=== PATIENT | female | born 1990 | race Caucasian/White ===

== ENCOUNTER 2018-06-23 10:00 | Emergency (ER) | payer SELFPAY ==
[2018-06-23 11:03] LABS: Absolute Lymphocytes (CBC) 2.2 K/uL (0.7-4.9); Absolute Monocytes 0.7 K/uL (0.1-1.3); Absolute Neutrophil 5.5 K/uL (1.8-8.0); Basophils % 0.3 % (0-1.3); Eosinophils % 9.5 % (0-4.4); Hematocrit 45.2 % (36.0-45.0); Lymphocytes % 23.5 % (15.3-44.8); MCH 32.1 pg (27.0-35.0); MCV 92.3 fL (80-100); MPV 10.8 fL (7.6-11.3)
[2018-06-23] MEDS ORDERED: NA CHLORIDE 0.9% 1,000 ML ONE ×2 (11:14→12:30)
[2018-06-23 11:17] LABS: Urine Blood NEGATIVE (NEG); Urine Glucose 3+ (NEG); Urine Protein NEGATIVE (NEG)
[2018-06-23 11:20] LABS: ALT/SGPT 26 U/L (12-78); AST/SGOT 12 U/L (15-37); Albumin 3.9 g/dL (3.4-5.0); Alkaline Phosphatase 83 U/L (45-117); BUN Blood Urea Nitrogen 8 mg/dL (7-18); Bicarbonate 24 mmol/L (21-32); Bilirubin Direct 0.1 mg/dL (0-0.2); Bilirubin Total 0.4 mg/dL (0.2-1.0); Lipase 233 U/L (73-393); Potassium 3.7 mmol/L (3.5-5.1); Protein, Total 7.5 g/dL (6.4-8.2); Sodium Level 130 mmol/L (136-145)
[2018-06-23 11:25] LABS: Glucose Level 566 mg/dL (74-106)
[2018-06-23] MEDS ORDERED: INSULIN -REGULAR HUMAN 50 UNIT/0.5 ML ML ONE (12:04)
--- NOTE | 2018-06-23 13:25 | RAD REPORT ---
EXAM DESCRIPTION: CT - Abdomen Pelvis W Contrast - 06/23/2018 1:09 pm CLINICAL HISTORY: Left lower quadrant pain, vomiting, hyperglycemia, diabetes history, prior C-secti on COMPARISON: CT imaging May 2016 and February 2013 TECHNIQUE: Biphasic, helical CT imaging of the abdomen and pelvis was performed following 100 ml non -ionic IV contrast. No oral contrast administered. All CT scans are performed using dose optimization technique as appropriate and may include automated exposure control or mA/KV adjustment according to patient size. FINDINGS: No suspicious findings in the lung bases. The liver, spleen, and pancreas show no suspicious findings. Gallbladder and biliary tree are also wi thout suspicious finding. Gallstones can be occult on CT imaging. No evidence for an active gallbladd er process. Symmetric renal function is seen with no hydronephrosis or suspicious renal mass. No pyelonephritis o r acute renal parenchymal process. Well filled urinary bladder shows no wall thickening, edema or acu te finding. Uterine size is normal. Fallopian tube occlusive devices are in place. There is heterogen eity of the myometrium enhancement which can be seen commonly and is not an indicator specifically of an active uterine myometrial process. Nabothian cysts are present similar to prior imaging. Left ovary is localized to the anterior upper left pelvis. No acute findings seen. In the right adnex a there is cystic structure present that dates back to at least 2012. This is possibly persistent ova all or paraovarian cyst. A chronic or right-side hydrosalpinx would be possible. By appearance and b y history pyosalpinx is not suspected. No dilated bowel loops or bowel wall thickening. No appendicitis findings. No free air, free fluid or inflammatory stranding. Moderate stool volume is present in the colon without an active colon proces s seen. No hernia, mass or bulky lymphadenopathy. No adrenal abnormality. No suspicious bony findings. IMPRESSION: No surgically emergent finding identifiable. Moderate stool volume is present throughout the colon with no acute colon process or abnormality of the appendix. A few minimally prominent fluid-filled small bowel loops are present. Nonspecific enteritis would be possible. Heterogeneity of the uterine wall enhancement pattern is nonspecific and most likely a normal variant . Fallopian tube occlusive devices are in place with no suspicious left ovarian or left adnexal findi ng. Cystic structure in the right adnexa is probably ovarian/paraovarian cysts that date back to 2012. Ch ronic right-sided hydrosalpinx is a possibility. By history and imaging, pyosalpinx is not suspected.
--- NOTE | 2018-06-23 14:56 | ER ---
Nurse's Notes [facility] Name: Shannan Mccoy Age: 27 yrs Sex: Female : 1990 Arrival Date: 06/23/2018 Time: 10:03 Bed 23 Private MD: KIMBERLY HARRIS Diagnosis: Hyperglycemia, unspecified Presentation: 06/23 10:28 Presenting complaint: Patient states: [id number] this morning, "I feel really weird." LLQ sv pain, c/o vomiting. Novolin 70/30 45 units taken at 0640. Transition of care: patient was not received from another setting of care. Onset of symptoms was June 23, 2018. Care prior to arrival: None. 10:28 Method Of Arrival: Ambulatory sv 10:28 Acuity: TAQUERIA 3 sv 15:16 Risk Assessment: Do you want to hurt yourself or someone else? Patient reports no mg2 desire to harm self or others. Initial Sepsis Screen: Does the patient meet any 2 criteria? No. Patient's initial sepsis screen is negative. Does the patient have a suspected source of infection? No. Patient's initial sepsis screen is negative. Triage Assessment: 15:16 General: Behavior is calm, cooperative. 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 - Social history:: Smoking status: unknown. - Ebola Screening: : No symptoms or risks identified at this time. Screenin:14 Abuse screen: Denies threats or abuse. Denies injuries from another. Nutritional mg2 screening: No deficits noted. Tuberculosis screening: No symptoms or risk factors identified. Fall Risk IV access (20 points). Assessment: 11:15 General: Appears in no apparent distress. Pain: Complains of pain in left lower iw quadrant. Neuro: Level of Consciousness is awake, alert, obeys commands, Oriented to person, place, time, situation, Moves all extremities. Full function. Cardiovascular: Patient's skin is warm and dry. Respiratory: Respiratory effort is even, unlabored, Respiratory pattern is regular, symmetrical. GI: Abdomen is flat, non-distended, Bowel sounds present X 4 quads. Abd is soft X 4 quads Abdomen is tender to palpation in left upper quadrant and left lower quadrant. Derm: Skin is intact, is healthy with good turgor. Musculoskeletal: Range of motion: intact in all extremities. 12:18 Reassessment: Patient appears in no apparent distress at this time. Patient and/or iw family updated on plan of care and expected duration. Pain level reassessed. Patient is alert, oriented x 3, equal unlabored respirations, skin warm/dry/pink. 14:05 Reassessment: Patient appears in no apparent distress at this time. Patient and/or rv family updated on plan of care and expected duration. Pain level reassessed. Patient is alert, oriented x 3, equal unlabored respirations, skin warm/dry/pink. Vital Signs: 10:31 BP 134 / 79; Pulse 79; Resp 18; Temp 97; Pulse Ox 97% ; Weight 49.9 kg; Height 4 ft. 9 sv in. (144.78 cm); Pain 6/10; 12:18 BP 97 / 68; Pulse 61; Resp 16; Pulse Ox 100% on R/A; iw 13:40 BP 112 / 82; Pulse 74; Pulse Ox 100% on R/A; Pain 4/10; rv 15:15 BP 118 / 86; Pulse 85; Resp 17; Pulse Ox 100% on R/A; mg2 10:31 Body Mass Index 23.80 (49.90 kg, 144.78 cm) sv ED Course: 10:03 Patient arrived in ED. mr 10:04 [facility], [facility] is Private Physician. mr 10:30 Triage completed. sv 10:32 Arm band placed on. sv 10:36 Shelby Segura FNP-C is PHCP. kb 10:36 Sher Osullivan MD is Attending Physician. kb 10:36 Geovanna Artis, ANNY is Primary Nurse. iw 12:10 Inserted saline lock: 22 gauge in left antecubital area, using aseptic technique. iw 13:02 Note: iv was not working, started a 24g diffusics to rt wrist. Patient moved to CT via wheelchair. 13:04 CT completed. Patient tolerated procedure well. Patient moved back from CT. 13:09 CT Abd/Pelvis - W/Contrast In Process Unspecified. EDMS 13:21 No provider procedures requiring assistance completed. iw 15:14 IV discontinued, intact, bleeding controlled, No redness/swelling at site. Pressure mg2 dressing applied. 15:17 Patient has correct armband on for positive identification. mg2 Administered Medications: 11:11 Drug: NS 0.9% 1000 ml Route: IV; Rate: 1000 ml; Site: right antecubital; iw 14:02 Follow up: IV Status: Completed infusion rv 12:20 Drug: Insulin Regular Human 10 units {Co-Signature: rv (Memo Draper RN).} Route: iw IVP; Site: left antecubital; 14:15 Follow up: Response: No adverse reaction; Blood sugar is lowered rv 13:45 Drug: NS 0.9% 1000 ml Route: IV; Rate: 1000 ml; Site: right wrist; rv Point of Care Testing: Blood Glucose: 10:35 Blood Glucose: 468 mg/dL; sv 12:37 Blood Glucose: 348 mg/dL; iw 13:40 Blood Glucose: 190 mg/dL; rv Ranges: Outcome: 14:56 Discharge ordered by . kb 15:15 Discharged to home ambulatory. mg2 15:15 Condition: stable 15:15 Discharge instructions given to patient, Instructed on discharge instructions, follow up and referral plans. Demonstrated understanding of instructions, follow-up care. 15:18 Patient left the ED. mg2 Signatures: Dispatcher [employer] EDMS Shelby Segura, LIQUIFIED NATURAL GAS TECHNICIAN-C LIQUIFIED NATURAL GAS TECHNICIAN-Arabella Islas RN Kayli Chuodhary mr VargasChristianne Irene, RN RN iw Ancelmo Encinas RN RN mg2 Vicente, Ronaldo, RN RN rv Memo Draper RN rv Corrections: (The following items were deleted from the chart) 12:20 12:18 BP 129 / 76; Pulse 52bpm; Resp 16bpm; Pulse Ox 100% RA; Pain 6/10; iw iw
--- NOTE | 2018-06-23 14:56 | EDPHYS ---
Physician Documentation [facility] Name: Shannan Mccoy Age: 27 yrs Sex: Female : 1990 Arrival Date: 06/23/2018 Time: 10:03 Bed 23 Private MD: KIMBERLY [facility] ED Physician Sher Osullivan HPI: 06/23 12:28 This 27 yrs old Female presents to ER via Ambulatory with complaints of kb Abdominal Pain, High Blood Sugar. 12:28 The patient or guardian reports hyperglycemia. Onset: The symptoms/episode kb began/occurred this morning. Associated signs and symptoms: Pertinent positives: nausea, vomiting. Current symptoms: In the emergency department the patient's symptoms are unchanged from the initial presentation. The patient has not experienced similar symptoms in the past. 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 - Social history:: Smoking status: unknown. - Ebola Screening: : No symptoms or risks identified at this time. ROS: 12:27 Constitutional: Negative for fever, chills, and weight loss, Cardiovascular: Negative kb for chest pain, palpitations, and edema, Respiratory: Negative for shortness of breath, cough, wheezing, and pleuritic chest pain, Back: Negative for injury and pain, : Negative for injury, bleeding, discharge, and swelling, MS/Extremity: Negative for injury and deformity, Skin: Negative for injury, rash, and discoloration, Neuro: Negative for headache, weakness, numbness, tingling, and seizure. 12:27 Abdomen/GI: Positive for abdominal pain, nausea and vomiting. Exam: 12:27 Constitutional: This is a well developed, well nourished patient who is awake, alert, kb and in no acute distress. Head/Face: Normocephalic, atraumatic. Chest/axilla: Normal chest wall appearance and motion. Nontender with no deformity. No lesions are appreciated. Cardiovascular: Regular rate and rhythm with a normal S1 and S2. No gallops, murmurs, or rubs. Normal PMI, no JVD. No pulse deficits. Respiratory: Lungs have equal breath sounds bilaterally, clear to auscultation and percussion. No rales, rhonchi or wheezes noted. No increased work of breathing, no retractions or nasal flaring. Skin: Warm, dry with normal turgor. Normal color with no rashes, no lesions, and no evidence of cellulitis. MS/ Extremity: Pulses equal, no cyanosis. Neurovascular intact. Full, normal range of motion. Neuro: Awake and alert, GCS 15, oriented to person, place, time, and situation. Cranial nerves II-XII grossly intact. Motor strength 5/5 in all extremities. Sensory grossly intact. Cerebellar exam normal. Normal gait. 12:27 Abdomen/GI: Inspection: abdomen appears normal, Bowel sounds: normal, in all quadrants, Palpation: soft, in all quadrants, moderate abdominal tenderness, in the left lower quadrant. Vital Signs: 10:31 BP 134 / 79; Pulse 79; Resp 18; Temp 97; Pulse Ox 97% ; Weight 49.9 kg; Height 4 ft. 9 sv in. (144.78 cm); Pain 6/10; 12:18 BP 97 / 68; Pulse 61; Resp 16; Pulse Ox 100% on R/A; iw 13:40 BP 112 / 82; Pulse 74; Pulse Ox 100% on R/A; Pain 4/10; rv 15:15 BP 118 / 86; Pulse 85; Resp 17; Pulse Ox 100% on R/A; mg2 10:31 Body Mass Index 23.80 (49.90 kg, 144.78 cm) sv MDM: 10:37 Patient medically screened. kb 12:27 Data reviewed: vital signs, nurses notes. Data interpreted: Pulse oximetry: on room air kb is 100 %. Interpretation: normal. 14:11 Counseling: I had a detailed discussion with the patient and/or guardian regarding: the kb historical points, exam findings, and any diagnostic results supporting the discharge/admit diagnosis, lab results, radiology results, the need for outpatient follow up, a family practitioner, to return to the emergency department if symptoms worsen or persist or if there are any questions or concerns that arise at home. 06/23 10:39 Order name: Glucose, Ancillary Testing; Complete Time: 10:43 EDMS 06/23 10:42 Order name: Basic Metabolic Panel; Complete Time: 11:31 kb 06/23 10:42 Order name: CBC with Diff; Complete Time: 11:18 kb 06/23 10:42 Order name: Hepatic Function; Complete Time: 11:31 kb 06/23 10:42 Order name: Lipase; Complete Time: 11:31 kb 06/23 10:42 Order name: Acetone, Serum; Complete Time: 11:31 kb 06/23 10:42 Order name: IV Saline Lock; Complete Time: 10:57 kb 06/23 10:42 Order name: Labs collected and sent; Complete Time: 10:57 kb 06/23 11:11 Order name: Urine Dipstick--Ancillary (enter results); Complete Time: 11:18 eb 06/23 11:11 Order name: Urine --Ancillary (enter results); Complete Time: 11:18 eb 06/23 12:39 Order name: CT Abd/Pelvis - W/Contrast; Complete Time: 13:29 kb 06/23 10:42 Order name: Urine Test (obtain specimen); Complete Time: 11: kb 06/23 10:42 Order name: Urine Dipstick-Ancillary (obtain specimen); Complete Time: 11: kb 06/23 14:02 Order name: Blood Glucose Level; Complete Time: 14:15 kb Administered Medications: 11:11 Drug: NS 0.9% 1000 ml Route: IV; Rate: 1000 ml; Site: right antecubital; iw 14:02 Follow up: IV Status: Completed infusion rv 12:20 Drug: Insulin Regular Human 10 units {Co-Signature: rv (Memo Draper RN).} Route: iw IVP; Site: left antecubital; 14:15 Follow up: Response: No adverse reaction; Blood sugar is lowered rv 13:45 Drug: NS 0.9% 1000 ml Route: IV; Rate: 1000 ml; Site: right wrist; rv Point of Care Testing: Blood Glucose: 10:35 Blood Glucose: 468 mg/dL; sv 12:37 Blood Glucose: 348 mg/dL; iw 13:40 Blood Glucose: 190 mg/dL; rv Ranges: Critical Glucose Levels:Adult <50 mg/dl or >400 mg/dl <40 mg/dl or >180 mg/dl Disposition: 18:50 Co-signature as Attending Physician, Sher Osullivan MD. rn Disposition: 06/23/18 14:56 Discharged to Home. Impression: Hyperglycemia, unspecified. - Condition is Stable. - Discharge Instructions: Hyperglycemia, [id number]. - Medication Reconciliation Form, Thank You Letter, Antibiotic Education, Prescription Opioid Use form. - Follow up: Emergency Department; When: As needed; Reason: Worsening of condition. Follow up: Private Physician; When: 2 - 3 days; Reason: Recheck today's complaints, Continuance of care, Re-evaluation by your physician. Signatures: Dispatcher [employer] EDMS Shelby Segura, WELL SERVICE PUMP EQUIPMENT OPERATOR-C WELL SERVICE PUMP EQUIPMENT OPERATOR-CkArabella Keene, RN RN sv Geovanna Artis, RN RN iw Sher Osullivan MD MD rn Gardose, Michele RN RN mg2 Memo Draper RN RN rv Memo Draper RN rv Corrections: (The following items were deleted from the chart) 15:18 14:56 06/23/2018 14:56 Discharged to Home. Impression: Hyperglycemia, unspecified. mg2 Condition is Stable. Discharge Instructions: Hyperglycemia, [id number]. Forms are Medication Reconciliation Form, Thank You Letter, Antibiotic Education, Prescription Opioid Use. Follow up: Emergency Department; When: As needed; Reason: Worsening of condition. Follow up: Private Physician; When: 2 - 3 days; Reason: Recheck today's complaints, Continuance of care, Re-evaluation by your physician. kb
[2018-06-23 15:38] VITALS: TEMP 97
[2018-06-23 15:39] VITALS: O2SAT 100
[2018-06-23 15:41] VITALS: BP 118/86
== END 2018-06-23 15:18 | disposition home or self-care (01) ==
LOC: ER 10:00
DX: E11.65 Type 2 diabetes mellitus with hyperglycemia (principal); Z79.4 Long term (current) use of insulin
CPT/HCPCS: 36415; 74177; 80048; 80076; 81003; 81025; 82010; 82962; 83690; 85025; 96361; 96374; 99284; J7030; Q9967

== ENCOUNTER 2018-07-13 22:59 | Emergency (ER) | payer SELFPAY ==
[2018-07-13 23:14] LABS: Absolute Lymphocytes (CBC) 5.6 K/uL (0.7-4.9); Absolute Monocytes 0.7 K/uL (0.1-1.3); Absolute Neutrophil 4.5 K/uL (1.8-8.0); Basophils % 0.4 % (0-1.3); Eosinophils % 4.8 % (0-4.4); MCH 31.4 pg (27.0-35.0); MCV 93.4 fL (80-100); MPV 10.5 fL (7.6-11.3); Monocytes % 6.3 % (3.3-12.3); RBC Red Blood Cell Count 4.71 M/uL (3.86-4.86)
[2018-07-13 23:18] LABS: Protime INR 0.82
[2018-07-13] MEDS ORDERED: NA CHLORIDE 0.9% 1,000 ML ONE ×2 (23:18→23:22)
[2018-07-13] MEDS ORDERED: ONDANSETRON 4 MG/2 ML VIAL ONE ×2 (23:18→23:21)
[2018-07-13 23:32] LABS: ALT/SGPT 27 U/L (12-78); AST/SGOT 18 U/L (15-37); Albumin 3.7 g/dL (3.4-5.0); Alkaline Phosphatase 74 U/L (45-117); BUN Blood Urea Nitrogen 12 mg/dL (7-18); Bicarbonate 20 mmol/L (21-32); Bilirubin Direct 0.1 mg/dL (0-0.2); Bilirubin Total 0.1 mg/dL (0.2-1.0); Potassium 3.2 mmol/L (3.5-5.1); Protein, Total 7.1 g/dL (6.4-8.2); Sodium Level 136 mmol/L (136-145)
[2018-07-13 23:35] LABS: Glucose Level 628 mg/dL (74-106)
[2018-07-13] MEDS ORDERED: INSULIN -REGULAR HUMAN 50 UNIT/0.5 ML ML ONE (23:51)
[2018-07-14 00:51] LABS: Barbiturates NEGATIVE (NEGATIVE); Benzodiazepines NEGATIVE (NEGATIVE); Cocaine NEGATIVE (NEGATIVE); METHAMPHETAM NEGATIVE (NEGATIVE); Methadone NEGATIVE (NEGATIVE); Opiates NEGATIVE (NEGATIVE); Phencyclidine NEGATIVE (NEGATIVE); THC Cannibis NEGATIVE (NEGATIVE)
--- NOTE | 2018-07-14 01:38 | EDPHYS ---
Physician Documentation [facility] Name: Shannan Mccoy Age: 27 yrs Sex: Female : 1990 Arrival Date: 07/13/2018 Time: 22:59 Bed 2 Private MD: ED Physician Anuj Coronado HPI: 07/14 01:32 This 27 yrs old Female presents to ER via Wheelchair with complaints of tw4 Unresponsive. 01:32 The patient presents with decreased mental status, decreased responsiveness. Onset: The tw4 symptoms/episode began/occurred today. Possible causes: alcohol, has had a recent alcohol binge. Associated signs and symptoms: Pertinent positives: nausea, vomiting. Current symptoms: In the emergency department the patient's symptoms are unchanged from the initial presentation. Patient's baseline: Neuro: alert and fully oriented, Motor: no deficits, Ambulation: walks without assistance, Speech: normal. The patient has not experienced similar symptoms in the past. 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 - Social history:: Smoking status: Patient/guardian denies using tobacco, Patient uses alcohol, patient/guardian reports recent binge of alcohol consumption. Patient/guardian denies using street drugs, Patient uses alcohol, but reports only rare drinking. patient/guardian reports recent binge of alcohol consumption. - Ebola Screening: : No symptoms or risks identified at this time. ROS: 07/14 01:32 Constitutional: Negative for fever, chills, and weight loss, Eyes: Negative for injury, tw4 pain, redness, and discharge, Cardiovascular: Negative for chest pain, palpitations, and edema, Respiratory: Negative for shortness of breath, cough, wheezing, and pleuritic chest pain, Abdomen/GI: Negative for abdominal pain, nausea, vomiting, diarrhea, and constipation, Back: Negative for injury and pain, MS/Extremity: Negative for injury and deformity, Skin: Negative for injury, rash, and discoloration. Neuro: Positive for altered mental status. Exam: 01:33 Head/Face: Normocephalic, atraumatic. tw4 01:33 Chest/axilla: Normal chest wall appearance and motion. Nontender with no deformity. No lesions are appreciated. Cardiovascular: Regular rate and rhythm with a normal S1 and S2. No gallops, murmurs, or rubs. Normal PMI, no JVD. No pulse deficits. Respiratory: Lungs have equal breath sounds bilaterally, clear to auscultation and percussion. No rales, rhonchi or wheezes noted. No increased work of breathing, no retractions or nasal flaring. Abdomen/GI: Soft, non-tender, with normal bowel sounds. No distension or tympany. No guarding or rebound. No evidence of tenderness throughout. Back: No spinal tenderness. No costovertebral tenderness. Full range of motion. MS/ Extremity: Pulses equal, no cyanosis. Neurovascular intact. Full, normal range of motion. 01:33 Constitutional: The patient appears lethargic, listless. 01:33 Neuro: Orientation: to person, place \T\ time. Mentation: slow to respond, confused, Cranial nerves: CN II- XII are normal as tested, Cerebellar function: unable to test, the patient is clinically intoxicated, Motor: moves all fours, Sensation: unable to test, the patient is clinically intoxicated, Gait: unable to assess, the patient is intoxicated. Vital Signs: 07/13 23:16 BP 126 / 94; Pulse 97; Resp 22 S; Pulse Ox 100% on R/A; Weight 47.63 kg (R); Height 4 bb ft. 9 in. (144.78 cm) (R); 23:18 BP 165 / 142; Pulse 102; Resp 21; Pulse Ox 98% on R/A; rr5 07/14 00:00 BP 143 / 81; Pulse 110; Resp 20; Pulse Ox 98% on R/A; rr5 00:30 BP 162 / 110; Pulse 111; Resp 20; Pulse Ox 98% on R/A; rr5 02:06 BP 103 / 69; Pulse 99; Resp 17; Pulse Ox 99% on R/A; rr5 07/13 23:16 Body Mass Index 22.72 (47.63 kg, 144.78 cm) bb [place] Coma Score: 07/13 23:20 Eye Response: to voice(3). Verbal Response: inappropriate words(3). Motor Response: rr5 obeys commands(6). Total: 12. 07/14 00:00 Eye Response: spontaneous(4). Verbal Response: confused(4). Motor Response: obeys rr5 commands(6). Total: 14. 00:30 Eye Response: spontaneous(4). Verbal Response: confused(4). Motor Response: obeys rr5 commands(6). Total: 14. 01:10 Eye Response: spontaneous(4). Verbal Response: oriented(5). Motor Response: obeys rr5 commands(6). Total: 15. 02:06 Eye Response: spontaneous(4). Verbal Response: oriented(5). Motor Response: obeys rr5 commands(6). Total: 15. MDM: 07/13 23:30 Patient medically screened. tw4 07/14 01:33 Differential Diagnosis: CVA, electrolyte abnormality, alcohol intoxication, overdose, tw4 volume depletion. Data reviewed: vital signs, nurses notes. Data interpreted: quality assurance monitor final: rhythm is normal sinus rhythm, Pulse oximetry: Interpretation: normal. Counseling: I had a detailed discussion with the patient and/or guardian regarding: the historical points, exam findings, and any diagnostic results supporting the discharge/admit diagnosis, lab results. Special discussion: I discussed with the patient/guardian in detail that at this point there is no indication for admission to the hospital. It is understood, however, that if the symptoms persist or worsen the patient needs to return immediately for re-evaluation. 07/13 23:04 Order name: Acetaminophen; Complete Time: 00:10 tw4 07/13 23:04 Order name: Basic Metabolic Panel; Complete Time: 00:10 tw4 07/14 00:10 Interpretation: Normal except: K 3.2; CO2 20; GLUC 628; GFR 75. tw4 07/13 23:04 Order name: CBC with Diff; Complete Time: 00:10 tw4 07/14 00:11 Interpretation: Normal except: WBC 11.4; RDW 12.6; KIKE% 39.5; LYM% 49.0; EOSINOPHIL % tw4 4.8; LYMA 5.6. 07/13 23:04 Order name: ETOH Level; Complete Time: 00:10 tw4 07/14 00:11 Interpretation: Normal except: ETOH 218. [facility] 07/13 23:04 Order name: Hepatic Function; Complete Time: 00:10 [facility] 07/14 00:11 Interpretation: Normal except: BILIT 0.1. [facility] 07/13 23:04 Order name: PT-INR; Complete Time: 00:10 [facility] 07/14 00:12 Interpretation: Normal except: PT 9.7. [facility] 07/13 23:04 Order name: Ptt, Activated; Complete Time: 00:10 [facility] 07/14 00:12 Interpretation: Within normal limits: PTT 27.1. [facility] 07/13 23:04 Order name: Salicylate; Complete Time: 00:10 [facility] 07/14 00:11 Interpretation: Normal except: DIONISIO < 1.7. [facility] 07/13 23:04 Order name: Urine Drug Screen [facility] 07/13 23:08 Order name: Ketone, Serum [facility] 07/13 23:09 Order name: Acetone Level; Complete Time: 00:10 EDUT 07/14 00:12 Interpretation: ACET NEG. [facility] 07/14 00:32 Order name: Urine Dipstick--Ancillary (enter results) [facility] 07/14 00:32 Order name: Urine --Ancillary (enter results) [facility] 07/13 23:04 Order name: Urine Test (obtain specimen); Complete Time: 00:54 [facility] 07/13 23:04 Order name: EKG; Complete Time: 23:06 [facility] 07/13 23:04 Order name: EKG - Nurse/Tech; Complete Time: 23:32 [facility] 07/13 23:04 Order name: IV Saline Lock; Complete Time: 23:23 [facility] 07/13 23:04 Order name: Labs collected and sent; Complete Time: 23:23 [facility] 07/13 23:04 Order name: Urine Dipstick-Ancillary (obtain specimen); Complete Time: 00:31 [facility] Administered Medications: 07/13 23:22 Drug: NS 0.9% 1000 ml Route: IV; Rate: 1 bolus; Site: right forearm; ea 07/14 00:30 Follow up: IV Status: Completed infusion; IV Intake: 1000ml rr5 07/13 23:22 Drug: Zofran 4 mg Route: IVP; Site: right forearm; ea 07/14 02:00 Follow up: Response: No adverse reaction; Marked relief of symptoms rr5 07/13 23:45 Drug: Insulin Regular Human 10 units {Co-Signature: sharron (Manoj Shukla RN).} Route: IVP; rr5 Site: right forearm; 07/14 02:11 Follow up: Response: No adverse reaction; Blood sugar is lowered rr5 00:15 Drug: NS 0.9% 1000 ml Route: IV; Rate: 1 bolus; Site: right forearm; rr5 01:50 Follow up: Urine output 400 ml; Response: No adverse reaction; IV Status: Completed rr5 infusion; IV Intake: 1000ml 02:11 Not Given (Physician Discretion): Insulin Regular Human 5 units IVP once rr5 Point of Care Testing: Blood Glucose: 07/13 23:18 Blood Glucose: 500 mg/dL; rr5 07/14 00:35 Blood Glucose: 343 mg/dL; rr5 01:00 Blood Glucose: 255 mg/dL; rr5 01:50 Blood Glucose: 179 mg/dL; rr5 07/13 23:18 more than 500 mg/dl dr. coronado informed rr5 07/14 00:35 dr. coronado informed rr5 01:00 DR coronado informed rr5 Ranges: Critical Glucose Levels:Adult <50 mg/dl or >400 mg/dl <40 mg/dl or >180 mg/dl Disposition: 07/14/18 01:37 Discharged to Home. Impression: Alcohol abuse with intoxication, Hyperglycemia, unspecified. - Condition is Stable. - Discharge Instructions: Alcohol Intoxication, Hyperglycemia, Alcohol Abuse and Nutrition, Blood Glucose Monitoring, Adult. - Prescriptions for Zofran 4 mg Oral Tablet - take 1 tablet by ORAL route every 12 hours As needed; 6 tablet. - Medication Reconciliation Form, Thank You Letter, Antibiotic Education, Prescription Opioid Use form. - Follow up: Private Physician; When: Upon discharge from the Emergency Department; Reason: Further diagnostic work-up, Recheck today's complaints, Continuance of care. - Problem is new. - Symptoms have improved. Signatures: Dispatcher [employer] Ary Dietrich RN RN Elaine Centeno RN RN ea Wadley, Terrence, MD MD tw4 Manuel Arauz RN RN rr5 Manoj mcdermott Corrections: (The following items were deleted from the chart) 02:10 01:37 07/14/2018 01:37 Discharged to Home. Impression: Alcohol abuse with intoxication; rr5 Hyperglycemia, unspecified. Condition is Stable. Forms are Medication Reconciliation Form, Thank You Letter, Antibiotic Education, Prescription Opioid Use. Follow up: Private Physician; When: Upon discharge from the Emergency Department; Reason: Further diagnostic work-up, Recheck today's complaints, Continuance of care. Problem is new. Symptoms have improved. tw4
--- NOTE | 2018-07-14 01:38 | ER ---
Nurse's Notes [facility] Name: Shannan Mccoy Age: 27 yrs Sex: Female : 1990 Arrival Date: 07/13/2018 Time: 22:59 Bed 2 Private MD: Diagnosis: Alcohol abuse with intoxication;Hyperglycemia, unspecified Presentation: 07/13 23:11 Presenting complaint: states: spouse drank approx 1 cup of alcohol mixed in two bb drinks with orange juice pt started vomiting and he checked her blood sugar which recorded high he then gave her 45 units of Novolin 70/30. Transition of care: patient was not received from another setting of care. Onset of symptoms was July 13, 2018. Risk Assessment: Do you want to hurt yourself or someone else? Patient reports no desire to harm self or others. Initial Sepsis Screen: Does the patient meet any 2 criteria? No. Patient's initial sepsis screen is negative. Does the patient have a suspected source of infection? No. Patient's initial sepsis screen is negative. Care prior to arrival: None. 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 - Social history:: Smoking status: Patient/guardian denies using tobacco, Patient uses alcohol, patient/guardian reports recent binge of alcohol consumption. Patient/guardian denies using street drugs, Patient uses alcohol, but reports only rare drinking. patient/guardian reports recent binge of alcohol consumption. - Ebola Screening: : No symptoms or risks identified at this time. Screenin:20 Abuse screen: Denies threats or abuse. Denies injuries from another. Nutritional rr5 screening: No deficits noted. Tuberculosis screening: No symptoms or risk factors identified. Fall Risk IV access (20 points). Ambulatory Aid- None/Bed Rest/Nurse Assist (0 pts). Gait- Impaired (20 pts.). Mental Status- Overestimates/Forgets Limitations (15 pts.). Total [place]ata Fall Scale indicates High Risk Score (45 or more points). Fall prevention measures have been instituted. Side Rails Up X 2 Frequent Obs/Assessments Occuring Family Present and informed to notify staff if the need to leave the bedside As available patient and family educated on Fall Prevention Program and Strategies. Assessment: 23:28 General: Appears uncomfortable, ill, Behavior is drowsy. Pain: Denies pain. Complains rr5 of pain in head Quality of pain is described as aching, Pain began suddenly, 1 hour ago. Neuro: Level of Consciousness is lethargic, drowsy. Cardiovascular: Capillary refill < 3 seconds Patient's skin is warm and dry. Cardiovascular: Respiratory: Airway is patent. Respiratory: Respiratory effort is labored, Respiratory pattern is tachypnea. GI: No signs and/or symptoms were reported involving the gastrointestinal system. Abdomen is round. : No signs and/or symptoms were reported regarding the genitourinary system. EENT: No signs and/or symptoms were reported regarding the EENT system. Derm: No signs and/or symptoms reported regarding the dermatologic system. Musculoskeletal: No signs and/or symptoms reported regarding the musculoskeletal system. 23:38 Reassessment: informed for the critical laboratory result Blood glucose of rr5 628mg/dl with order and carried out by laboratory staff terra carroll. 07/14 00:30 Reassessment: patient is drowsy disoriented GCS 14/15 more responsive. negative for rr5 vomiting. 01:00 Reassessment: Patient appears in no apparent distress at this time. reassessment done rr5 GCS15/15, repeat CBG 255mg/dl dr. coronado at bedside Patient states feeling better. Patient states symptoms have improved. 01:59 Reassessment: patient feeling better as verbalized. explained to thinner sprayer the rr5 discharge instruction, followup, and to repeat the glucose check every 3-4 hours. Patient states feeling better. Patient states symptoms have improved. Vital Signs: 07/13 23:16 BP 126 / 94; Pulse 97; Resp 22 S; Pulse Ox 100% on R/A; Weight 47.63 kg (R); Height 4 bb ft. 9 in. (144.78 cm) (R); 23:18 BP 165 / 142; Pulse 102; Resp 21; Pulse Ox 98% on R/A; rr5 11/22 00:00 BP 143 / 81; Pulse 110; Resp 20; Pulse Ox 98% on R/A; rr5 00:30 BP 162 / 110; Pulse 111; Resp 20; Pulse Ox 98% on R/A; rr5 02:06 BP 103 / 69; Pulse 99; Resp 17; Pulse Ox 99% on R/A; rr5 07/13 23:16 Body Mass Index 22.72 (47.63 kg, 144.78 cm) bb [place] Coma Score: 07/13 23:20 Eye Response: to voice(3). Verbal Response: inappropriate words(3). Motor Response: rr5 obeys commands(6). Total: 12. 07/14 00:00 Eye Response: spontaneous(4). Verbal Response: confused(4). Motor Response: obeys rr5 commands(6). Total: 14. 00:30 Eye Response: spontaneous(4). Verbal Response: confused(4). Motor Response: obeys rr5 commands(6). Total: 14. 01:10 Eye Response: spontaneous(4). Verbal Response: oriented(5). Motor Response: obeys rr5 commands(6). Total: 15. 02:06 Eye Response: spontaneous(4). Verbal Response: oriented(5). Motor Response: obeys rr5 commands(6). Total: 15. ED Course: 07/13 22:59 Patient arrived in ED. es 23:02 Anuj Coronado MD is Attending Physician. tw4 23:15 Triage completed. bb 23:16 Arm band placed on Patient placed in an exam room, on a stretcher, on manager monitoring, bb on pulse oximetry. Family accompanied patient. 23:20 Patient has correct armband on for positive identification. Placed in gown. Bed in low rr5 position. Call light in reach. Side rails up X2. Adult w/ patient. 23:20 Inserted saline lock: 20 gauge in left antecubital area, using aseptic technique. Blood rr5 collected. 23:22 Manuel Arauz, ANNY is Primary Nurse. rr5 23:30 Inserted saline lock: 22 gauge in right forearm, using aseptic technique. Blood rr5 collected. 07/14 02:07 No provider procedures requiring assistance completed. IV discontinued, intact, rr5 bleeding controlled, No redness/swelling at site. Pressure dressing applied, 2 iv cannula removed. Administered Medications: 07/13 23:22 Drug: NS 0.9% 1000 ml Route: IV; Rate: 1 bolus; Site: right forearm; ea 07/14 00:30 Follow up: IV Status: Completed infusion; IV Intake: 1000ml rr5 07/13 23:22 Drug: Zofran 4 mg Route: IVP; Site: right forearm; ea 07/14 02:00 Follow up: Response: No adverse reaction; Marked relief of symptoms rr5 07/13 23:45 Drug: Insulin Regular Human 10 units {Co-Signature: sharron (Manoj Shukla RN).} Route: IVP; rr5 Site: right forearm; 07/14 02:11 Follow up: Response: No adverse reaction; Blood sugar is lowered rr5 00:15 Drug: NS 0.9% 1000 ml Route: IV; Rate: 1 bolus; Site: right forearm; rr5 01:50 Follow up: Urine output 400 ml; Response: No adverse reaction; IV Status: Completed rr5 infusion; IV Intake: 1000ml 02:11 Not Given (Physician Discretion): Insulin Regular Human 5 units IVP once rr5 Point of Care Testing: Blood Glucose: 07/13 23:18 Blood Glucose: 500 mg/dL; rr5 07/14 00:35 Blood Glucose: 343 mg/dL; rr5 01:00 Blood Glucose: 255 mg/dL; rr5 01:50 Blood Glucose: 179 mg/dL; rr5 07/13 23:18 more than 500 mg/dl dr. coronado informed rr5 07/14 00:35 dr. coronado informed rr5 01:00 DR coronado informed rr5 Ranges: Intake: 00:30 IV: 1000ml; Total: 1000ml. rr5 01:50 IV: 1000ml; Total: 2000ml. rr5 Output: 01:50 Urine: 400ml; Total: 400ml. rr5 Outcome: 01:37 Discharge ordered by . tw4 02:08 Discharged to home ambulatory, with family. rr5 02:08 Condition: stable 02:08 Discharge instructions given to patient, family, Instructed on discharge instructions, follow up and referral plans. medication usage, Demonstrated understanding of instructions, follow-up care, medications, Prescriptions given X 1. 02:10 Patient left the ED. rr5 Signatures: Janet Limon Brenda, RN RN bb Elaine Blanchard, RN RN Anuj Ibrahim MD MD tw4 Manuel Arauz RN RN rr5 Manoj mcdermott
[2018-07-14 02:31] LABS: Urine Blood NEGATIVE (NEG); Urine Glucose NEGATIVE (NEG); Urine Protein NEGATIVE (NEG)
[2018-07-14 03:43] VITALS: BP 103/69; O2SAT 99
--- NOTE | 2018-07-14 09:41 | EKG ---
Test Date: 2018-07-13 Test Time: 23:30:46 Senior Energy Trader: JIN MEASUREMENT RESULTS: Intervals: Rate: 100 CT: 186 QRSD: 94 QT: 356 QTc: 459 [place]: P: 51 CT: 186 QRS: 67 T: -62 INTERPRETIVE STATEMENTS: Normal sinus rhythm Possible Left atrial enlargement ST & T wave abnormality, consider inferior ischemia ST & T wave abnormality, consider anterolateral ischemia Abnormal ECG No previous ECG available for comparison Electronically Signed On 07-14-18 09:40:23 CLAIMS SORTER by Rodolfo Webb
== END 2018-07-14 02:10 | disposition home or self-care (01) ==
LOC: ER 22:59
DX: E11.65 Type 2 diabetes mellitus with hyperglycemia (principal); F10.129 Alcohol abuse with intoxication, unspecified; Z79.4 Long term (current) use of insulin
CPT/HCPCS: 36415; 80048; 80076; 80307; 80320; 80329; 81003; 81025; 82010; 82962; 85025; 85610; 85730; 93005; 96361; 96374; 96375; 99284; J2405; J7030

== ENCOUNTER 2019-09-18 11:24 | Emergency (ER) | payer SELFPAY ==
--- OUTSIDE RECORDS SUMMARY | 2019-09-18 11:26 | XMS REPORT ---
:1990 [facility] Address [address] [place] [address] Dr. Berumen [address] [place] [id number] Care Team Providers Name Role Phone Unavailable Unavailable Unavailable Problems This patient has no known problems. Allergies, Adverse Reactions, Alerts This patient has no known allergies or adverse reactions. Medications This patient has no known medications.
--- NOTE | 2019-09-18 13:09 | RAD REPORT ---
EXAM DESCRIPTION: RAD - Ankle Left 3 View -09/18/2019 1:00 pm CLINICAL HISTORY: Left ankle pain status post injury FINDINGS: No fracture or dislocation is seen.
--- NOTE | 2019-09-18 13:11 | RAD REPORT ---
EXAM DESCRIPTION: RAD - Foot Left 3 View - 09/18/2019 1:00 pm CLINICAL HISTORY: Left Foot pain status post injury FINDINGS: No fracture or dislocation is seen.
--- NOTE | 2019-09-18 13:44 | EDPHYS ---
Physician Documentation [facility] Name: Shannan Mccoy Age: 28 yrs Sex: Female : 1990 Arrival Date: 09/18/2019 Time: 11:26 Bed 26 Private MD: ED Physician Roman Cook HPI: 09/18 12:01 This 28 yrs old Female presents to ER via Ambulatory with complaints of Ankle jmm Injury. 12:01 The patient presents with an injury, pain. Onset: The symptoms/episode began/occurred jmm acutely. Modifying factors: The symptoms are alleviated by nothing, the symptoms are aggravated by weight bearing. This is a 28 year old female with a history of DM that presents to the ED with complaints of left ankle pain. Patient states she rolled her left ankle approx 5 days ago. Patient states pain has not decreased. Denies other injury.. 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 - Coronavirus screen:: The patient has NOT traveled to [place], [place], or [place] in the past 14 days. - Social history:: Smoking status: . - Ebola Screening: : Patient denies travel to an Ebola-affected area in the 21 days before illness onset. ROS: 12:01 Constitutional: Negative for fever, chills, and weight loss, Cardiovascular: Negative jmm for chest pain, palpitations, and edema, Respiratory: Negative for shortness of breath, cough, wheezing, and pleuritic chest pain. 12:01 MS/extremity: Positive for injury or acute deformity. 12:01 All other systems are negative. Exam: 12:01 Constitutional: This is a well developed, well nourished patient who is awake, alert, jmm and in no acute distress. Head/Face: atraumatic. Eyes: EOMI, no conjunctival erythema appreciated ENT: Moist Mucus Membranes Neck: Trachea midline, Supple Chest/axilla: Normal chest wall appearance and motion. Cardiovascular: Regular rate and rhythm. No edema appreciated Respiratory: Normal respirations, no respiratory distress appreciated Abdomen/GI: Non distended, soft Back: Normal ROM Skin: General appearance color normal 12:01 Musculoskeletal/extremity: mild left lateral foot tenderness on palpation, anterior ankle pain on palpation, full dorsalis pulse, compartments are soft, NVI. 12:01 Skin: Appearance: Color: normal in color. 12:01 Neuro: Orientation: is normal, Mentation: is normal, Memory: is normal. 12:01 Psych: Behavior/mood is pleasant, cooperative. Vital Signs: 11:41 BP 111 / 99; Pulse 80; Resp 17; Temp 97.6(TE); Pulse Ox 99% on R/A; Weight 44.45 kg; tw2 Height 4 ft. 9 in. (144.78 cm); Pain 6/10; 13:40 BP 120 / 78; Pulse 81; Resp 18; Temp 97.8(O); Pulse Ox 100% ; mg2 11:41 Body Mass Index 21.21 (44.45 kg, 144.78 cm) tw2 MDM: 12:01 Patient medically screened. nathaly 13:41 Data reviewed: vital signs, nurses notes, radiologic studies, plain films. Counseling: lara I had a detailed discussion with the patient and/or guardian regarding: the historical points, exam findings, and any diagnostic results supporting the discharge/admit diagnosis, radiology results, the need for outpatient follow up, to return to the emergency department if symptoms worsen or persist or if there are any questions or concerns that arise at home. ED course: Xray negative. advised to follow up with pcp and otherwise given strict return precautions. patient understood and agrees with the plan of care. . 09/18 12:07 Order name: Ankle Left 3 View XRAY; Complete Time: 13:15 [facility] 09/18 12:07 Order name: Foot Left 3 View XRAY; Complete Time: 13:15 [facility] 09/18 13:16 Order name: Sim wrap-joint; Complete Time: 13:40 [facility] 09/18 13:16 Order name: Crutches; Complete Time: 13:40 kalina Administered Medications: No medications were administered Disposition: 14:38 Co-signature as Attending Physician, Roman Cook MD I agree with the assessment and nathaly plan of care. Disposition: 09/18/19 13:43 Discharged to Home. Impression: Sprain of ankle. - Condition is Stable. - Discharge Instructions: Ankle Sprain. - Medication Reconciliation Form, Thank You Letter, Antibiotic Education, Prescription Opioid Use form. - Follow up: Private Physician; When: 2 - 3 days; Reason: Recheck today's complaints, Continuance of care, Re-evaluation by your physician. Signatures: Dispatcher [employer] EDRoman Pelletier MD MD cha Mickail, Joel, PA PA Noemi Russo, RN RN tw2 Ancelmo Encinas RN RN mg2 Corrections: (The following items were deleted from the chart) 13:45 13:43 09/18/2019 13:43 Discharged to Home. Impression: Sprain of ankle. Condition is mg2 Stable. Forms are Medication Reconciliation Form, Thank You Letter, Antibiotic Education, Prescription Opioid Use. Follow up: Private Physician; When: 2 - 3 days; Reason: Recheck today's complaints, Continuance of care, Re-evaluation by your physician. lara
--- NOTE | 2019-09-18 13:44 | ER ---
Nurse's Notes [facility] Name: Shannan Mccoy Age: 28 yrs Sex: Female : 1990 Arrival Date: 09/18/2019 Time: 11:26 Bed 26 Private MD: Diagnosis: Sprain of ankle Presentation: 09/18 11:40 Presenting complaint: Patient states: my LEFT ankle starting hurting last Wednesday, i tw2 tripped and fell when i was playing with my nephew and stepped right into the hole and it just is not getting better. Transition of care: patient was not received from another setting of care. Onset of symptoms was September 18, 2019. Risk Assessment: Do you want to hurt yourself or someone else? Patient reports no desire to harm self or others. Initial Sepsis Screen: Does the patient meet any 2 criteria? No. Patient's initial sepsis screen is negative. Does the patient have a suspected source of infection? No. Patient's initial sepsis screen is negative. Care prior to arrival: None. 11:40 Method Of Arrival: Ambulatory tw2 11:40 Acuity: TAQUERIA 4 tw2 Triage Assessment: 11:41 General: Appears in no apparent distress. slender, Behavior is calm, cooperative, tw2 appropriate for age. Pain: Complains of pain in left ankle. Musculoskeletal: Circulation, motion, and sensation intact. Range of motion: intact in all extremities. 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 - Coronavirus screen:: The patient has NOT traveled to [place], [place], or [place] in the past 14 days. - Social history:: Smoking status: . - Ebola Screening: : Patient denies travel to an Ebola-affected area in the 21 days before illness onset. Screenin:59 Abuse screen: Denies threats or abuse. Denies injuries from another. Nutritional mg2 screening: No deficits noted. Tuberculosis screening: No symptoms or risk factors identified. Fall Risk Fall in past 12 months (25 points). Gait- Weak (10 pts.). Assessment: 12:58 General: Appears in no apparent distress. comfortable, Behavior is calm, cooperative. mg2 Pain: Complains of pain in left foot. Neuro: Level of Consciousness is awake, alert, obeys commands, Oriented to person, place, time, situation. Cardiovascular: Capillary refill < 3 seconds Patient's skin is warm and dry. Respiratory: Airway is patent Respiratory effort is even, unlabored, Respiratory pattern is regular, symmetrical. GI: No signs and/or symptoms were reported involving the gastrointestinal system. : No deficits noted. EENT: No signs and/or symptoms were reported regarding the EENT system. Derm: Skin is intact, is healthy with good turgor, Skin is pink, warm \T\ dry. normal. Musculoskeletal: Circulation, motion, and sensation intact. Capillary refill < 3 seconds, Reports pain in left foot. Vital Signs: 11:41 BP 111 / 99; Pulse 80; Resp 17; Temp 97.6(TE); Pulse Ox 99% on R/A; Weight 44.45 kg; tw2 Height 4 ft. 9 in. (144.78 cm); Pain 6/10; 13:40 BP 120 / 78; Pulse 81; Resp 18; Temp 97.8(O); Pulse Ox 100% ; mg2 11:41 Body Mass Index 21.21 (44.45 kg, 144.78 cm) tw2 ED Course: 11:26 Patient arrived in ED. rg4 11:41 Triage completed. tw2 11:41 Arm band placed on. tw2 11:55 Roni Mistry PA is PHCP. jmm 11:55 Roman Cook MD is Attending Physician. jmm 12:58 Ancelmo Encinas, ANNY is Primary Nurse. mg2 13:00 Ankle Left 3 View XRAY In Process Unspecified. EDMS 13:00 Foot Left 3 View XRAY In Process Unspecified. EDMS 13:00 Patient has correct armband on for positive identification. mg2 13:00 No provider procedures requiring assistance completed. Patient did not have IV access mg2 during this emergency room visit. 13:40 Crutch training done. Sim wrap to left foot. mg2 Administered Medications: No medications were administered Outcome: 13:41 Discharged to home via wheelchair, with crutches. mg2 13:41 Condition: stable 13:41 Discharge instructions given to patient, family, Instructed on discharge instructions, follow up and referral plans. Demonstrated understanding of instructions, follow-up care, crutch walking. 13:43 Discharge ordered by . lara 13:45 Patient left the ED. mg2 Signatures: Dispatcher [employer] EDMS Roni Mistry PA PA jmm Wise, Tara, RN RN tw2 Flora Kelsey 4 Ancelmo Encinas RN RN mg2
[2019-09-18 14:13] VITALS: BP 120/78; TEMP 97.8; O2SAT 100
== END 2019-09-18 13:45 | disposition home or self-care (01) ==
LOC: ER 11:24
DX: S93.402A Sprain of unspecified ligament of left ankle, initial encounter (principal); X58.XXXA Exposure to other specified factors, initial encounter; Y93.9 Activity, unspecified; Y92.9 Unspecified place or not applicable; E11.9 Type 2 diabetes mellitus without complications; Z79.4 Long term (current) use of insulin
CPT/HCPCS: 99283

== ENCOUNTER 2021-06-27 07:58 | Emergency (ER) | payer SELFPAY ==
[2021-06-27] MEDS ORDERED: ONDANSETRON 4 MG (ODT) TAB ONE (08:18)
[2021-06-27] MEDS ORDERED: HYDROCODONE/APAP 5/325 MG TAB ONE (08:19)
--- NOTE | 2021-06-27 08:58 | RAD REPORT ---
EXAM DESCRIPTION: RAD - Foot Left 3 View - 06/27/2021 8:33 am CLINICAL HISTORY: SMASH INJURY COMPARISON: Foot Left 3 View dated 09/18/2019 FINDINGS: No fracture or dislocation is seen.
--- NOTE | 2021-06-27 09:07 | ER ---
Nurse's Notes [facility] Name: Shannan Mccoy Age: 30 yrs Sex: Female : 1990 Arrival Date: 06/27/2021 Time: 08:00 Bed 6 Private MD: Diagnosis: Contusion of left foot Presentation: 06/27 08:01 Chief complaint: Patient states: L foot pain after heavy object rolled onto foot while ss working on a truck yesterday evening. Coronavirus screen: Client denies travel out of the [place] in the last 14 days. Ebola Screen: Patient denies exposure to infectious person. Patient denies travel to an Ebola-affected area in the 21 days before illness onset. Initial Sepsis Screen: Does the patient meet any 2 criteria? No. Patient's initial sepsis screen is negative. Does the patient have a suspected source of infection? No. Patient's initial sepsis screen is negative. Risk Assessment: Do you want to hurt yourself or someone else? Patient reports no desire to harm self or others. Onset of symptoms was June 26, 2021. 08:01 Method Of Arrival: Wheelchair ss 08:01 Acuity: TAQUERIA 4 ss Triage Assessment: 08:05 General: Appears in no apparent distress. uncomfortable, Behavior is cooperative, bp appropriate for age, anxious. Pain: Complains of pain in dorsum of left foot. EENT: No deficits noted. Neuro: Level of Consciousness is awake, alert, obeys commands, Oriented to Appropriate for age. Cardiovascular: No deficits noted. Respiratory: No deficits noted. GI: No signs and/or symptoms were reported involving the gastrointestinal system. : No signs and/or symptoms were reported regarding the genitourinary system. Derm: No deficits noted. Musculoskeletal: Reports pain in dorsum of left foot. Injury Description: Bruise sustained to dorsum of left foot. Historical: - Allergies: 08:19 NKDA; ss - Home Meds: 08:19 Insulin [Active]; ss - PMHx: 08:19 Diabetes - IDDM; ss - PSHx: 08:19 None; ss - Immunization history:: Client reports having NOT received the Covid vaccine. Last tetanus immunization: up to date. - Social history:: Smoking status: Patient denies any tobacco usage or history of. Screenin:15 Abuse screen: Denies threats or abuse. Denies injuries from another. Nutritional ll3 screening: No deficits noted. Tuberculosis screening: No symptoms or risk factors identified. Fall Risk None identified. Assessment: 08:15 General: Appears in no apparent distress. uncomfortable, Behavior is calm, cooperative, ll3 appropriate for age. Pain: Complains of pain in dorsum of left foot Pain does not radiate. Pain currently is 7 out of 10 on a pain scale. Quality of pain is described as sharp, Pain began 1 day ago. Is continuous. Neuro: Level of Consciousness is awake, alert, obeys commands, Oriented to person, place, time, situation. Cardiovascular: Patient's skin is warm and dry. Respiratory: Airway is patent Respiratory effort is even, unlabored, Respiratory pattern is regular, symmetrical. Derm: Skin is pink, warm \T\ dry. Bruising that is dark purple, on dorsum of left foot. Musculoskeletal: Range of motion: Unable to move the left fourth and fifth toe Swelling present in dorsum of left foot. 09:33 Reassessment: PT D/C HOME AMBULATORY WITH CRUTCHES, DX WITH LEFT FOOT CONTUSION. bp Vital Signs: 08:01 BP 117 / 82; Pulse 93; Resp 16; Temp 98.8(TE); Pulse Ox 100% on R/A; Weight 43.86 kg; ss Height 4 ft. 9 in. (144.78 cm); Pain 6/10; 09:06 BP 121 / 79; Pulse 87; Resp 17; Temp 98.3; Pulse Ox 100% ; bp 09:20 BP 117 / 90; Pulse 85; Resp 15; Pulse Ox 100% ; Pain 2/10; jl7 08:01 Body Mass Index 20.93 (43.86 kg, 144.78 cm) ED Course: 08:00 Patient arrived in ED. ds1 08:03 Komal Bermudez RN is Primary Nurse. jl7 08:03 Nba Read NP is PHCP. pm1 08:04 Dipak Soliman MD is Attending Physician. pm1 08:15 Patient has correct armband on for positive identification. Bed in low position. Call ll3 light in reach. Pulse ox on. NIBP on. 08:19 Triage completed. ss 08:19 Arm band placed on right wrist. ss 08:33 Foot Left 3 View XRAY In Process Unspecified. EDMS 08:56 Dashawn García, RN is Primary Nurse. bp 09:33 No provider procedures requiring assistance completed. Patient did not have IV access bp during this emergency room visit. Administered Medications: 08:24 Drug: HYDROcodone-acetaminophen 5 mg-325 mg 1 tabs Route: PO; ll3 09:00 Follow up: Response: No adverse reaction; Pain is decreased jl7 08:24 Drug: Zofran (Ondansetron) 4 mg Route: PO; ll3 09:33 Follow up: Response: No adverse reaction jl7 Outcome: 09:06 Discharge ordered by MD. pm1 09:33 Discharged to home ambulatory, with crutches, with family. bp 09:33 Condition: stable 09:33 Discharge instructions given to patient, Instructed on discharge instructions, follow up and referral plans. medication usage, crutch walking, Demonstrated understanding of instructions, follow-up care, medications, crutch walking, Prescriptions given X 2. 09:34 Patient left the ED. bp Signatures: Dispatcher [employer] EDNE Aneta Freeman ds1 Kyung Kathleen RN RN ss Nba Read, DIRECTOR HOME DIRECTOR HOME pm1 Komal Bermudez RN RN jl7 Dashawn García, RN Sara Howard RN RN ll3
--- NOTE | 2021-06-27 09:07 | EDPHYS ---
Physician Documentation [facility] Name: Shannan Mccoy Age: 30 yrs Sex: Female : 1990 Arrival Date: 06/27/2021 Time: 08:00 Bed 6 Private MD: ED Physician Dipak Soliman HPI: 06/27 08:13 This 30 yrs old Female presents to ER via Unassigned with complaints of Foot pm1 Injury. 08:13 The patient presents with pain, that is acute. The complaints affect the dorsum of left pm1 foot. Context: The problem was sustained at home, resulted from a crush injury, from a heavy object, Problem is a result from a previous injury: No. Onset: The symptoms/episode began/occurred this morning. Modifying factors: The symptoms are alleviated by elevating leg, the symptoms are aggravated by movement, weight bearing. Associated signs and symptoms: Pertinent positives: swelling, Pertinent negatives numbness, tingling. Treatment prior to arrival includes: no previous treatment. Severity of symptoms: in the emergency department the symptoms are unchanged. The patient has not experienced similar symptoms in the past. The patient has not recently seen a physician. Historical: - Allergies: 08:19 NKDA; ss - Home Meds: 08:19 Insulin [Active]; ss - PMHx: 08:19 Diabetes - IDDM; ss - PSHx: 08:19 None; ss - Immunization history:: Client reports having NOT received the Covid vaccine. Last tetanus immunization: up to date. - Social history:: Smoking status: Patient denies any tobacco usage or history of. ROS: 08:13 Constitutional: Negative for fever, chills, and weight loss, Cardiovascular: Negative pm1 for chest pain, palpitations, and edema, Respiratory: Negative for shortness of breath, cough, wheezing, and pleuritic chest pain. 08:13 Neuro: Negative for headache, weakness, numbness, tingling, and seizure. 08:13 MS/extremity: Positive for pain, swelling, of the dorsum of left foot, Negative for paresthesias. 08:13 Skin: Positive for ecchymosis, swelling, of the dorsum of left foot. 08:13 All other systems are negative. Exam: 08:13 Constitutional: This is a well developed, well nourished patient who is awake, alert, pm1 and in no acute distress. Head/Face: Normocephalic, atraumatic. 08:13 Eyes: Exam is negative for acute changes. 08:13 ENT: Exam is negative for acute changes, Mouth: Lips: normal, moist, Oral mucosa: normal, pink and intact, moist. 08:13 Cardiovascular: Exam negative for acute changes, Rate: normal, Rhythm: regular, Pulses: no pulse deficits are appreciated. 08:13 Respiratory: Exam negative for acute changes, respiratory distress, shortness of breath. 08:13 Musculoskeletal/extremity: Extremities: grossly normal except: noted in the lateral dorsum of left foot: ecchymosis, swelling, tenderness, Circulation is intact in all extremities. Sensation intact. 08:13 Skin: Appearance: normal except for affected area, injury, contusion(s), that are superficial, of the dorsum of left foot. 08:13 Neuro: Exam negative for acute changes, Orientation: is normal, Mentation: is normal, Motor: is normal, moves all fours. Vital Signs: 08:01 BP 117 / 82; Pulse 93; Resp 16; Temp 98.8(TE); Pulse Ox 100% on R/A; Weight 43.86 kg; ss Height 4 ft. 9 in. (144.78 cm); Pain 6/10; 09:06 BP 121 / 79; Pulse 87; Resp 17; Temp 98.3; Pulse Ox 100% ; bp 09:20 BP 117 / 90; Pulse 85; Resp 15; Pulse Ox 100% ; Pain 2/10; jl7 08:01 Body Mass Index 20.93 (43.86 kg, 144.78 cm) ss MDM: 08:08 Patient medically screened. pm1 08:31 Data reviewed: vital signs. Data interpreted: Pulse oximetry: on room air is 100 %. pm1 Interpretation: normal. 09:05 Counseling: I had a detailed discussion with the patient and/or guardian regarding: the pm1 historical points, exam findings, and any diagnostic results supporting the discharge/admit diagnosis, radiology results, the need for outpatient follow up, a family practitioner, a general warehouse associate, to return to the emergency department if symptoms worsen or persist or if there are any questions or concerns that arise at home. 09:10 ED course: SUPERVISOR HOT DIP PLATING aware reviewed, no results. pm1 06/27 08:08 Order name: Foot Left 3 View XRAY; Complete Time: 09:03 pm1 06/27 08:14 Order name: Ice pack; Complete Time: 08:33 pm1 06/27 09:09 Order name: Crutches; Complete Time: 09:33 pm1 06/27 09:09 Order name: Sim Wrap; Complete Time: 09:33 pm1 Administered Medications: 08:24 Drug: HYDROcodone-acetaminophen 5 mg-325 mg 1 tabs Route: PO; ll3 09:00 Follow up: Response: No adverse reaction; Pain is decreased jl7 08:24 Drug: Zofran (Ondansetron) 4 mg Route: PO; ll3 09:33 Follow up: Response: No adverse reaction jl7 Disposition Summary: 06/27/21 09:06 Discharge Ordered Location: Home pm1 Problem: new pm1 Symptoms: have improved pm1 Condition: Stable pm1 Diagnosis - Contusion of left foot pm1 Followup: pm1 - With: Emergency Department - When: As needed - Reason: Worsening of condition Followup: pm1 - With: Private Physician - When: 2 - 3 days - Reason: Recheck today's complaints, Continuance of care, Re-evaluation by your physician Discharge Instructions: - Discharge Summary Sheet pm1 - Foot Contusion pm1 - Crutch Use, Adult pm1 Forms: - Medication Reconciliation Form pm1 - Thank You Letter pm1 - Antibiotic Education pm1 - Prescription Opioid Use pm1 Prescriptions: - acetaminophen-codeine 300-15 mg Oral tablet - take 1 tablet by ORAL route every 8 hours As needed as needed; 12 tablet; pm1 Refills: 0, Product Selection Permitted - ondansetron 4 mg Oral tablet,disintegrating - place 1 tablet by TRANSLINGUAL route every 8 hours As needed; 12 tablet; pm1 Refills: 0, Product Selection Permitted Addendum: 07/07/2021 05:21 Co-signature as Attending Physician, Dipak Soliman MD PA/MANAGER SUBWAY's history reviewed, m a2 patient interviewed, and examined. I agree with assessment and care plan and confirm the diagnosis (es) above. Signatures: Dispatcher [facility] Kyung Kathleen RN RN ss Nba Read NP MANAGER SUBWAY pm1 Dipak Soliman MD MD mn2 Sara Valentino RN RN ll3 Komal Bermudez RN jl7
[2021-06-27 09:39] VITALS: O2SAT 100
[2021-06-27 09:41] VITALS: TEMP 98.3
[2021-06-27 09:42] VITALS: BP 117/90
--- OUTSIDE RECORDS SUMMARY | 2021-07-05 12:12 | XMS REPORT | Continuity of Care Document ---
:1990 Author Organization [facility] t Address [address] [place] [address] Dr. Berumen [address] [place] [id number] Care Team Providers Name Role Phone Unavailable Unavailable Unavailable Problems This patient has no known problems. Allergies, Adverse Reactions, Alerts This patient has no known allergies or adverse reactions. Medications This patient has no known medications. Procedures This patient has no known procedures. Results This patient has no known results.
== END 2021-06-27 09:34 | disposition home or self-care (01) ==
LOC: ER 07:58
DX: S90.32XA Contusion of left foot, initial encounter (principal); X58.XXXA Exposure to other specified factors, initial encounter; Y92.009 Unspecified place in unspecified non-institutional (private) residence as the place of occurrence of the external cause; E11.9 Type 2 diabetes mellitus without complications; Z79.4 Long term (current) use of insulin
CPT/HCPCS: 99284